=== PATIENT | male | born 1980 | race Caucasian/White ===

== ENCOUNTER 2022-12-25 08:08 | Emergency (ER) | payer OTHER ==
[2022-12-25 08:20] VITALS: BP 151/83; PULSE 77; RESP 18; TEMP 98.2; BMI 26.6
[2022-12-25] MEDS ORDERED: FLUORESCEIN NA 1 EA STRIP OD ONE (08:34)
[2022-12-25] MEDS ORDERED: TETRACAINE 0.5% OPHTH SOLN 2 ML BOTTLE OD ONE (08:34)
[2022-12-25] MEDS ORDERED: TETRACAINE 0.5% OPHTH SOLN 2 ML BOTTLE ONE (08:37)
[2022-12-25] MEDS ORDERED: FLUORESCEIN NA 1 EA STRIP ONE (08:37)
== END 2022-12-25 08:58 | disposition home or self-care (01) ==
LOC: JERFT 08:08
DX: H57.12 Ocular pain, left eye (principal); S05.02XA Injury of conjunctiva and corneal abrasion without foreign body, left eye, initial encounter; W50.0XXA Accidental hit or strike by another person, initial encounter
CPT/HCPCS: 99283-25

== ENCOUNTER 2023-04-01 04:46 | Day surgery (SDC) | payer BC ==
[2023-03-27 12:03] VITALS: BMI 27.3
[2023-04-01 08:39] VITALS: TEMP 98.1
[2023-04-01 09:20] VITALS: BP 120/75; PULSE 57; RESP 14
== END 2023-04-01 09:50 | disposition home or self-care (01) ==
LOC: JASU-ENDO 04:46
PROVIDERS: ATTEND Internal Medicine Gastroenterology
PROC: 0DB98ZX Excision of Duodenum, Via Natural or Artificial Opening Endoscopic, Diagnostic (ICD-10-PCS; 2023-04-01)
PROC: 0DB78ZX Excision of Stomach, Pylorus, Via Natural or Artificial Opening Endoscopic, Diagnostic (ICD-10-PCS; 2023-04-01)
PROC: 0DB68ZX Excision of Stomach, Via Natural or Artificial Opening Endoscopic, Diagnostic (ICD-10-PCS; 2023-04-01)
PROC: 0DB28ZX Excision of Middle Esophagus, Via Natural or Artificial Opening Endoscopic, Diagnostic (ICD-10-PCS; 2023-04-01)
PROC: 0DBN8ZX Excision of Sigmoid Colon, Via Natural or Artificial Opening Endoscopic, Diagnostic (ICD-10-PCS; principal; 2023-04-01 08:00)
DX: Z12.11 Encounter for screening for malignant neoplasm of colon (principal); K63.5 Polyp of colon; K29.50 Unspecified chronic gastritis without bleeding; K21.00 Gastro-esophageal reflux disease with esophagitis, without bleeding; K44.9 Diaphragmatic hernia without obstruction or gangrene

== ENCOUNTER 2023-12-19 01:54 | Emergency (ER) | payer BC ==
[2023-12-19 02:03] VITALS: BP 117/72; PULSE 62; RESP 18; TEMP 97.8; BMI 27.3
[2023-12-19] MEDS ORDERED: MAG HYDROX/AL HYDROX/SIMETH 30 ML UNIT-DOSE CUP ONE (02:20)
[2023-12-19] MEDS ORDERED: ACETAMINOPHEN INJECTION 100 ML ONE (02:21)
[2023-12-19] MEDS ORDERED: FAMOTIDINE 20 MG/50 ML IVPB 20 MG/50 ML MG IVPB ONE (02:21)
[2023-12-19] MEDS ORDERED: KETOROLAC TROMETHAMINE 30 MG/1 ML VIAL ONE ×2 (02:22→02:48)
[2023-12-19] MEDS: MAG HYDROX/AL HYDROX/SIMETH -MYLANTA- ORAL SUSPENSION PO ONE (02:36)
[2023-12-19] MEDS: SODIUM CHLORIDE 0.9% 500 ML INFUS.BAG IV ONE (02:37)
[2023-12-19] MEDS: FAMOTIDINE 20 MG/50 ML IVPB 20 MG in PREMIX 50 IVPB ONE (02:38)
[2023-12-19] MEDS: KETOROLAC TROMETHAMINE 30 MG/1 ML VIAL IVPUSH ONE (02:38)
[2023-12-19] MEDS: ACETAMINOPHEN 1000 MG/100 ML BAG IVPB ONE (03:01)
[2023-12-19 03:26] LABS: MEAN CELL VOLUME 79.5 fl (80-96)
[2023-12-19 03:52] LABS: EOS % 1.5 % (0-4.5); LYMPH % 18.6 % (8-40); MONO % 10.7 % (3.8-10.2); NEUT % 68.2 % (42.8-82.8)
[2023-12-19 03:57] LABS: POTASSIUM 3.9 mmol/L (3.5-5.1)
[2023-12-19 03:59] LABS: CALCIUM 8.9 mg/dL (8.5-10.1)
[2023-12-19 04:00] LABS: ALBUMIN 3.9 g/dl (3.4-5.0); BLOOD UREA NITROGEN 26.9 mg/dL (7-18); HEMATOCRIT 41.9 % (35.4-49); HEMOGLOBIN 14.5 GM/dL (11.7-16.9); MCH 27.4 pg (25.7-33.7); MCHC 34.5 g/dl (32.0-35.9); MEAN PLT VOLUME 8.9 fl (7.5-11.1); PLATELET COUNT 151 10^3/uL (134-434); RBC 5.27 M/mm3 (4.00-5.60); RDW 13.5 % (11.9-15.9); WHITE BLOOD COUNT 6.1 K/mm3 (4.0-10.0)
[2023-12-19 04:04] LABS: BILIRUBIN,TOTAL 0.7 mg/dL (0.2-1); TOT PROT 6.6 g/dl (6.4-8.2)
== END 2023-12-19 04:27 | disposition home or self-care (01) ==
LOC: FER 01:54
PROC: 3E033GC Introduction of Other Therapeutic Substance into Peripheral Vein, Percutaneous Approach (ICD-10-PCS; principal; 2023-12-19)
PROC: 3E033NZ Introduction of Analgesics, Hypnotics, Sedatives into Peripheral Vein, Percutaneous Approach (ICD-10-PCS; 2023-12-19)
PROC: 3E0333Z Introduction of Anti-inflammatory into Peripheral Vein, Percutaneous Approach (ICD-10-PCS; 2023-12-19)
DX: R10.9 Unspecified abdominal pain (principal)
CPT/HCPCS: 36415; 80053; 83690; 85025; 93005; 99284-25; J0131